=== PATIENT | male | born 1945 | race Caucasian/White ===

== ENCOUNTER 2020-05-05 08:50 | Outpatient (CLI) | payer MEDICARE ==
--- NOTE | 2020-05-05 10:46 | CT ---
CT OF THE ABDOMEN AND PELVIS WITH AND WITHOUT IV CONTRAST: INDICATION: History of prostate malignancy and elevated PSA. COMPARISON: CT of the abdomen and pelvis with contrast dated 02/02/2017 from [facility]. FINDINGS: The small punctate nonobstructing calculi affecting both kidneys is relatively stable in terms of kd al stone burden. No hydronephrosis is evident. No focal renal lesion is demonstrated. Delayed phas e images demonstrate no gross urothelial lesion identified. There are calcifications of the vas deferens which can be seen in diabetic males. There is some wall thickening involving the bladder without an intraluminal mass. the prostate is relatively enlarged measuring 5.2 cm. No pathologically enlarged pelvic lymphadenopathy is grossly evident. No retroper itoneal or upper abdominal lymphadenopathy is evident. There is emphysematous change involving the lung bases. No focal hepatic lesion is evident. The gal lbladder is normal-appearing by CT. The pancreas and spleen reveal no acute abnormality. There are small calcified granuloma in the spleen. The adrenal glands are normal-appearing. There are moderate to severe vascular calcifications involving the abdominopelvic vasculature. There is mild ectasia of the infrarenal abdominal aorta measuring up to 2.3 cm. There is atherosclerotic irregularity involving the pelvic vasculature. There is scattered diverticula involving the colon without evidence of diverticulitis. The small bow el is normal-appearing. The appendix is not well seen. No free fluid is evident. There is diffuse osteopenia. There is scattered degenerative and osteoarthritic change. No suspicio us osteolytic or osteoblastic lesions identified. There is some degenerative subchondral sclerosis i nvolving the iliac bones, left greater than right. IMPRESSION: 1. No overt evidence to suggest the presence of metastatic disease within the abdomen and pelvis. 2. Bilateral nephrolithiasis. 3. Mild ectasia of the infrarenal abdominal aorta. 4. Colonic diverticulosis. 5. Prostate enlargement with bladder wall thickening may reflect a component a component of bladder outlet obstruction. POS: BH
== END 2020-05-05 08:51 | disposition home or self-care (01) ==
LOC: TBSIIMAG 08:50
PROVIDERS: ATTEND Urology
DX: C61 Malignant neoplasm of prostate (principal); N20.0 Calculus of kidney; I77.811 Abdominal aortic ectasia; K57.30 Diverticulosis of large intestine without perforation or abscess without bleeding; N40.0 Benign prostatic hyperplasia without lower urinary tract symptoms; N32.89 Other specified disorders of bladder
CPT/HCPCS: 74178; 82565

== ENCOUNTER 2020-06-08 08:55 | Outpatient (CLI) | payer MEDICARE ==
--- NOTE | 2020-06-09 09:53 | MRI ---
MRI PELVIS (PROSTATE) WITH AND WITHOUT IV CONTRAST: Date: 06/08/2020 HISTORY: 75-year-old male with prostate cancer. Biopsy performed on 03/26/2020 with 09/14 positive. PSA 8.5 on 02/14/2020. FINDINGS: The prostate measures 4.3 x 2.8 x 3.5 cm with a volume of 22 mL and a PSA density of 0.39 nanogram/mL /CC. There is an 11.0 mm focal area of restricted diffusion in the left mid peripheral zone suspicious for malignant process. Arterial enhancement is seen, but is not significantly different from surrounding tissue. No lentiform area of abnormally decreased T2 signal is seen in the transitional zone. The prostatic capsule demonstrates mild bulging adjacent to the left peripheral zone lesion. Involvem ent of the left neurovascular bundle cannot be completely excluded. No pelvic lymphadenopathy is seen. Seminal vesicles are unremarkable. Pelvic side wall is normal. The re is diverticular disease of the sigmoid colon. No abnormal areas of signal replacement of the T1-weighted sequences of the pelvis are seen to sugges t osseous metastatic disease. IMPRESSION: PI-RADS Category 4 - High (clinical significant cancer is likely to be present). POS: OFF
== END 2020-06-08 08:56 | disposition home or self-care (01) ==
LOC: TBSIIMAG 08:55
PROVIDERS: ATTEND Urology
DX: C61 Malignant neoplasm of prostate (principal)
CPT/HCPCS: 72197

== ENCOUNTER 2021-04-28 13:15 | Inpatient (IN) | payer MEDICARE ==
[2021-04-27 13:29] VITALS: BMI 19.3
[2021-05-03] MEDS ORDERED: cefOXitin Sodium/Dextrose 2 GM/50 ML BAG ONE (12:04)
[2021-05-03 12:39] LABS: Anion Gap 11 mmol/L (10-20); BUN (Urea Nitrogen) 19 mg/dL (8.4-25.7); Calc. Creatinine Clearance 34 mL/min (70-130); Calcium 10.2 mg/dL (7.8-10.44); Carbon Dioxide 26 mmol/L (23-31); Chloride 106 mmol/L (98-107); Glucose 104 mg/dL (83-110); Potassium 4.1 mmol/L (3.5-5.1); Sodium 139 mmol/L (136-145)
[2021-05-03] MEDS ORDERED: Dexamethasone 4 mg/ml Vial ONE (14:41)
[2021-05-03] MEDS ORDERED: Fentanyl 100 MCG/2 ML VIAL ONE ×2 (14:41→16:00)
[2021-05-03] MEDS ORDERED: Bupivacaine 0.25% HCL 30 ML VIAL ONE (16:09)
[2021-05-03] MEDS ORDERED: EPINEPHrine 1 MG/ML AMP ONE (16:09)
[2021-05-03] MEDS ORDERED: Indocyanine Green 25 MG/10 ML VIAL ONE (16:09)
[2021-05-03] MEDS ORDERED: Ondansetron PF 4 MG/2 ML Vial ONE (16:31)
[2021-05-03] MEDS ORDERED: Lidocaine 1% PF 5 ML VIAL ONE (16:31)
[2021-05-03] MEDS ORDERED: Bupivacaine HCl 0.5%/Epinephrine 1:200,000/PF 30 ml Vial ONE (16:31)
[2021-05-03] MEDS ORDERED: Ketorolac Tromethamine 30 MG/ML VIAL ONE (16:31)
[2021-05-03] MEDS ORDERED: Dexamethasone 20 MG/5 ML VIAL ONE ×2 (16:31)
[2021-05-03] MEDS ORDERED: Glycopyrrolate 0.2 MG/ML 5 ML SYRINGE ONE (16:31)
[2021-05-03] MEDS ORDERED: PHENYLEPHRINE-NS 100 MCG/ML 10 ML SYRINGE ONE (16:31)
[2021-05-03] MEDS ORDERED: Rocuronium Bromide 10 MG/ML (10ML VIAL) ONE (16:31)
[2021-05-03] MEDS ORDERED: PROPOFOL 200 MG/20 ML VIAL ONE (16:31)
[2021-05-03] MEDS ORDERED: hydrALAZINE 20 MG/ML VIAL SLOW IVP PRN (18:30)
[2021-05-03] MEDS ORDERED: Promethazine HCl 25 MG/ML VIAL IM PRN ×3 (18:30→18:46)
[2021-05-03] MEDS ORDERED: Ondansetron PF 4 MG/2 ML Vial IVP PRN ×2 (18:30→18:46)
[2021-05-03] MEDS ORDERED: Naloxone HCl 0.4 mg/ml Vial IV PRN (18:46)
[2021-05-03] MEDS ORDERED: diphenhydrAMINE 25 MG CAP PO PRN (18:46)
[2021-05-03] MEDS ORDERED: diphenhydrAMINE 50 MG/ML VIAL IM PRN (18:46)
[2021-05-03] MEDS ORDERED: Promethazine HCl 25 MG/ML VIAL IVPB PRN (18:46)
[2021-05-03] MEDS ORDERED: fentaNYL Citrate/PF 2,000 MCG in Sodium Chloride 0.9% 60 ML IV PRN (18:46)
[2021-05-03] MEDS ORDERED: diphenhydrAMINE 50 MG/ML VIAL IVP PRN (18:46)
[2021-05-03] MEDS ORDERED: Ondansetron HCl/PF 4 MG/2 ML Vial IVP PRN (18:46)
[2021-05-03] MEDS ORDERED: Zolpidem Tartrate 5 MG TAB PO PRN (18:46)
[2021-05-03] MEDS ORDERED: Communication Order-Pharmacy FS PRN (19:00)
[2021-05-03] MEDS ORDERED: Famotidine 20 MG TAB PO SCH (21:00)
[2021-05-03] MEDS ORDERED: Famotidine/PF 20 mg/2ml Vial SLOW IVP SCH (21:00)
[2021-05-03] MEDS: cefOXitin Sodium 1 GM, Admixture Fee 1 EACH in Sodium Chloride 0.9% 100 ML IVPB SCH (21:08)
[2021-05-03] MEDS: Sodium Chloride 0.9% 1,000 ML IV SCH (21:09)
[2021-05-03] MEDS: Tamsulosin HCl 0.4 MG CAP PO SCH (21:10)
[2021-05-04] MEDS: cefOXitin Sodium 1 GM, Admixture Fee 1 EACH in Sodium Chloride 0.9% 100 ML IVPB SCH (04:08)
[2021-05-04] MEDS: Sodium Chloride 0.9% 1,000 ML IV SCH (05:45)
[2021-05-04 08:56] LABS: #Lymphocytes 0.5 thou/uL (1.20-3.40); #Monocytes 1.1 thou/uL (0.11-0.59); #Neutrophils 7.8 thou/uL (1.40-6.50); %Eosinophils 0.1 % (0.0-10.0); %Lymphocytes 5.4 % (21.0-51.0); %Monocytes 11.9 % (0.0-10.0); %Neutrophils 82.6 % (42.0-75.0); Hemoglobin 12.2 g/dL (14.0-18.0); Mean Corpuscular HGB CONC 33.1 g/dL (32.0-36.0); Mean Corpuscular Hemoglobin 30.3 pg (27.0-31.0); Mean Corpuscular Volume 91.5 fL (78.0-98.0); Mean Platelet Volume 7.6 fL (7.4-10.4); Platelet Count 152 thou/uL (130-400); RBC Distribution Width 12.1 % (11.5-14.5); Red Blood Cell (RBC) Count 4.04 mill/uL (4.70-6.10); White Blood Cell (WBC) Count 9.4 thou/uL (4.8-10.8)
[2021-05-04] MEDS ORDERED: Enoxaparin Sodium 30 MG/0.3 ML SYRINGE SC SCH (09:00)
[2021-05-04 09:07] LABS: Anion Gap 6 mmol/L (10-20); BUN (Urea Nitrogen) 21 mg/dL (8.4-25.7); Calc. Creatinine Clearance 35 mL/min (70-130); Calcium 8.7 mg/dL (7.8-10.44); Carbon Dioxide 26 mmol/L (23-31); Chloride 108 mmol/L (98-107); Glucose 125 mg/dL (83-110); Potassium 4.5 mmol/L (3.5-5.1); Sodium 135 mmol/L (136-145)
[2021-05-04] MEDS ORDERED: Sodium Chloride 0.9% 1,000 ML IV SCH (09:24)
[2021-05-04] MEDS: Famotidine/PF 20 mg/2ml Vial SLOW IVP SCH (10:12)
[2021-05-04] MEDS: Tamsulosin HCl 0.4 MG CAP PO SCH (20:28)
[2021-05-05] MEDS: Famotidine 20 MG TAB PO SCH ×2 (01:51→07:46)
[2021-05-05] MEDS: Enoxaparin Sodium 40 MG/0.4 ML SYRINGE SC SCH (07:46)
[2021-05-05] MEDS: Famotidine/PF 20 mg/2ml Vial SLOW IVP SCH (07:49)
[2021-05-05] MEDS ORDERED: Fentanyl 100 MCG/2 ML VIAL SLOW IVP PRN (11:53)
[2021-05-05] MEDS ORDERED: traMADol HCl 50 MG TAB PO PRN (11:57)
[2021-05-05] MEDS ORDERED: HYDROcodone/Acetaminophen 5/325 mg Tablet PO PRN ×2 (12:00)
[2021-05-05] MEDS: Tamsulosin HCl 0.4 MG CAP PO SCH (20:42)
[2021-05-06 08:40] VITALS: BP 117/54; TEMP 97.7
[2021-05-06] MEDS: Enoxaparin Sodium 40 MG/0.4 ML SYRINGE SC SCH (09:21)
[2021-05-06] MEDS: Famotidine 20 MG TAB PO SCH (09:21)
[2021-05-06] MEDS: Famotidine/PF 20 mg/2ml Vial SLOW IVP SCH (09:21)
== END 2021-05-06 11:25 | disposition home health service (06) | DRG 331 ==
LOC: SURG A 05-03 11:04 → EDSTATUS 05-03 13:44 → SURG A 05-03 19:40
PROVIDERS: ADMIT Surgery; ATTEND Surgery
PROC: 0DBG0ZZ Excision of Left Large Intestine, Open Approach (ICD-10-PCS; principal; 2021-05-03)
PROC: 0D1B0Z4 Bypass Ileum to Cutaneous, Open Approach (ICD-10-PCS; 2021-05-03)
DX: C18.9 Malignant neoplasm of colon, unspecified (principal); F17.210 Nicotine dependence, cigarettes, uncomplicated; M10.9 Gout, unspecified; J44.9 Chronic obstructive pulmonary disease, unspecified; N18.30 Chronic kidney disease, stage 3 unspecified; I71.4 Abdominal aortic aneurysm, without rupture; Z80.0 Family history of malignant neoplasm of digestive organs; Z79.51 Long term (current) use of inhaled steroids; Z79.899 Other long term (current) drug therapy; Z85.828 Personal history of other malignant neoplasm of skin; Z85.46 Personal history of malignant neoplasm of prostate
CPT/HCPCS: 36415; 36416; 80048; 85025; 88309; A4649; C1776; J0171; J0694; J1100; J1650; J1885; J2405; J2704; J3010; J3490; J7050; S0020; S0028

== ENCOUNTER 2021-04-28 13:22 | Outpatient (CLI) | payer MEDICARE ==
[2021-04-28 14:45] LABS: #Basophils 0.1 10x3/uL (0.0-0.2); #Eosinphils 0.2 10x3/uL (0.0-0.5); #Monocytes 0.8 10x3/uL (0.0-1.1); #Neutrophils 3.9 10x3/uL (1.5-8.4); %Basophils 0.8 % (0.0-2.0); %Eosinophils 3.8 % (0.0-6.0); %Lymphocytes 20.8 % (18.0-47.0); %Monocytes 12.3 % (0.0-10.0); Hemoglobin 13.8 g/dL (13.5-17.5); Mean Corpuscular HGB CONC 32.3 g/dL (32.0-36.0); Mean Corpuscular Hemoglobin 29.6 pg (27.0-33.0); Mean Corpuscular Volume 91.6 fl (81.2-95.1); Mean Platelet Volume 9.9 fl (7.4-10.4); Platelet Count 218 10x3/uL (150-450); RBC Distribution Width 13.4 % (11.5-14.5); Red Blood Cell (RBC) Count 4.66 10x6/uL (4.32-5.72); White Blood Cell (WBC) Count 6.4 10x3/uL (3.5-10.5)
[2021-04-28 14:59] LABS: Anion Gap 16 mmol/L (10-20); BUN (Urea Nitrogen) 27 mg/dL (8.4-25.7); Calc. Creatinine Clearance 0 mL/min (70-130); Calcium 10.1 mg/dL (7.8-10.44); Carbon Dioxide 29 mmol/L (23-31); Chloride 106 mmol/L (98-107); Glucose 79 mg/dL (83-110); Potassium 5.5 mmol/L (3.5-5.1); Sodium 145 mmol/L (136-145)
[2021-04-28 20:21] LABS: Hemoglobin A1c 5.4 % (4.0-6.0)
[2021-04-29 21:07] LABS: SARS-CoV-2 PCR by NAA Not Detected (NotDetected)
== END 2021-04-28 13:23 | disposition home or self-care (01) ==
LOC: LABBT 13:22
PROVIDERS: ATTEND Orthopaedic Surgery
DX: Z01.812 Encounter for preprocedural laboratory examination (principal); C18.9 Malignant neoplasm of colon, unspecified; Z20.822 Contact with and (suspected) exposure to COVID-19
CPT/HCPCS: 80048; 83036; 85025; U0003; U0005

== ENCOUNTER 2021-05-10 13:08 | Day surgery (SDC) | payer MEDICARE ==
[2021-05-10] MEDS ORDERED: Ondansetron PF 4 MG/2 ML Vial IVP PRN (13:17)
[2021-05-10] MEDS ORDERED: Sodium Chloride 0.9% 1,000 ML IV SCH (13:30)
[2021-05-10] MEDS ORDERED: Multivitamins, Adult 10 ML, Thiamine HCl 100 MG in Sodium Chloride 0.9% 500 ML IV SCH (13:30)
[2021-05-10 13:34] VITALS: BP 114/63
== END 2021-05-10 15:35 | disposition home or self-care (01) ==
LOC: ONC/OP 13:08
PROVIDERS: ATTEND Surgery
DX: E86.0 Dehydration (principal)
CPT/HCPCS: 96361; 96365; 96366; J3411; J7030

== ENCOUNTER 2021-06-23 11:28 | Outpatient (CLI) | payer MEDICARE ==
[2021-06-23 12:41] LABS: #Eosinphils 0.1 10x3/uL (0.0-0.5); #Monocytes 0.5 10x3/uL (0.0-1.1); #Neutrophils 4.3 10x3/uL (1.5-8.4); %Basophils 0.7 % (0.0-2.0); %Eosinophils 2.2 % (0.0-6.0); %Lymphocytes 15.2 % (18.0-47.0); %Monocytes 9.1 % (0.0-10.0); %Neutrophils 72.5 % (40.0-75.0); Hemoglobin 13.9 g/dL (13.5-17.5); Mean Corpuscular HGB CONC 32.5 g/dL (32.0-36.0); Mean Corpuscular Hemoglobin 29.8 pg (27.0-33.0); Mean Corpuscular Volume 91.6 fl (81.2-95.1); Mean Platelet Volume 9.7 fl (7.4-10.4); Platelet Count 221 10x3/uL (150-450); RBC Distribution Width 14.1 % (11.5-14.5); Red Blood Cell (RBC) Count 4.67 10x6/uL (4.32-5.72); White Blood Cell (WBC) Count 5.9 10x3/uL (3.5-10.5)
[2021-06-23 13:06] LABS: Anion Gap 13 mmol/L (10-20); BUN (Urea Nitrogen) 23 mg/dL (8.4-25.7); Calc. Creatinine Clearance 0 mL/min (70-130); Calcium 9.9 mg/dL (7.8-10.44); Carbon Dioxide 26 mmol/L (23-31); Chloride 107 mmol/L (98-107); Glucose 142 mg/dL (83-110); Potassium 5.3 mmol/L (3.5-5.1); Sodium 141 mmol/L (136-145)
[2021-06-23 21:45] LABS: SARS-CoV-2 PCR by NAA Not Detected (NotDetected)
== END 2021-06-23 11:29 | disposition home or self-care (01) ==
LOC: LABBT 11:28
PROVIDERS: ATTEND Surgery
DX: Z01.812 Encounter for preprocedural laboratory examination (principal); C18.9 Malignant neoplasm of colon, unspecified; Z20.822 Contact with and (suspected) exposure to COVID-19
CPT/HCPCS: 80048; 85025; U0003; U0005

== ENCOUNTER 2021-06-28 11:36 | Inpatient (IN) | payer MEDICARE ==
[2021-06-28] MEDS ORDERED: cefOXitin Sodium/Dextrose 2 GM/50 ML BAG ONE (12:28)
[2021-06-28] MEDS ORDERED: Fentanyl 100 MCG/2 ML VIAL ONE ×3 (12:30→14:38)
[2021-06-28] MEDS ORDERED: PHENYLEPHRINE-NS 100 MCG/ML 10 ML SYRINGE ONE (12:32)
[2021-06-28] MEDS ORDERED: Rocuronium Bromide 10 MG/ML (10ML VIAL) ONE (12:32)
[2021-06-28] MEDS ORDERED: Calcium Chloride 1 GM/10 ML Abboject SYRINGE ONE (12:32)
[2021-06-28] MEDS ORDERED: Glycopyrrolate 0.2 MG/ML 5 ML SYRINGE ONE (12:32)
[2021-06-28] MEDS ORDERED: PROPOFOL 200 MG/20 ML VIAL ONE (12:32)
[2021-06-28] MEDS ORDERED: ePHEDrine 50 MG/ML VIAL ONE (12:32)
[2021-06-28 12:50] LABS: Anion Gap 13 mmol/L (10-20); BUN (Urea Nitrogen) 26 mg/dL (8.4-25.7); Calc. Creatinine Clearance 33 mL/min (70-130); Calcium 10.2 mg/dL (7.8-10.44); Carbon Dioxide 26 mmol/L (23-31); Chloride 105 mmol/L (98-107); Glucose 103 mg/dL (83-110); Potassium 3.9 mmol/L (3.5-5.1); Sodium 140 mmol/L (136-145)
[2021-06-28] MEDS ORDERED: Promethazine HCl 25 MG/ML VIAL IVPB PRN (13:55)
[2021-06-28] MEDS ORDERED: Promethazine HCl 25 MG/ML VIAL IM PRN ×2 (13:55→18:09)
[2021-06-28] MEDS ORDERED: Ondansetron HCl/PF 4 MG/2 ML Vial IVP PRN (13:55)
[2021-06-28] MEDS ORDERED: Morphine 4 MG/ML VIAL ONE (14:46)
[2021-06-28] MEDS ORDERED: Promethazine HCl 25 MG/ML VIAL ONE (15:21)
[2021-06-28] MEDS ORDERED: Dextrose 50% Abboject 50 ML SYRINGE SLOW IVP PRN (18:09)
[2021-06-28] MEDS ORDERED: Morphine 4 MG/ML VIAL SLOW IVP PRN ×2 (18:09→18:15)
[2021-06-28] MEDS ORDERED: Dextrose 5% in Water 1,000 ML IV PRN (18:09)
[2021-06-28] MEDS ORDERED: Ondansetron PF 4 MG/2 ML Vial IVP PRN (18:09)
[2021-06-28] MEDS ORDERED: hydrALAZINE 20 MG/ML VIAL SLOW IVP PRN (18:09)
[2021-06-28] MEDS ORDERED: Albuterol 200 PUFF (6.7GM INHALER) INH PRN (18:18)
[2021-06-28] MEDS ORDERED: Famotidine 20 MG TAB PO SCH (21:00)
[2021-06-28] MEDS ORDERED: Tamsulosin HCl 0.4 MG CAP PO SCH (21:00)
[2021-06-28] MEDS ORDERED: Famotidine/PF 20 mg/2ml Vial SLOW IVP SCH (21:00)
[2021-06-28] MEDS ORDERED: Enoxaparin Sodium 40 MG/0.4 ML SYRINGE SC SCH (21:00)
[2021-06-28] MEDS: HYDROcodone/Acetaminophen 7.5/325 mg Tablet PO PRN (21:11)
[2021-06-28] MEDS: Sodium Chloride 0.9% 1,000 ML IV SCH (21:11)
[2021-06-28 22:08] VITALS: BMI 18.5
[2021-06-29] MEDS: HYDROcodone/Acetaminophen 7.5/325 mg Tablet PO PRN ×2 (04:48→14:02)
[2021-06-29 06:24] LABS: #Eosinphils 0.1 thou/uL (0.0-0.7); #Lymphocytes 1.1 thou/uL (1.20-3.40); #Monocytes 0.9 thou/uL (0.11-0.59); #Neutrophils 5.1 thou/uL (1.40-6.50); %Basophils 0.4 % (0.0-1.0); %Eosinophils 1.1 % (0.0-10.0); %Lymphocytes 15.1 % (21.0-51.0); %Monocytes 11.9 % (0.0-10.0); %Neutrophils 71.5 % (42.0-75.0); Hemoglobin 12.5 g/dL (14.0-18.0); Mean Corpuscular HGB CONC 31.9 g/dL (32.0-36.0); Mean Corpuscular Hemoglobin 29.6 pg (27.0-31.0); Mean Corpuscular Volume 92.7 fL (78.0-98.0); Mean Platelet Volume 7.5 fL (7.4-10.4); Platelet Count 180 thou/uL (130-400); RBC Distribution Width 12.5 % (11.5-14.5); Red Blood Cell (RBC) Count 4.21 mill/uL (4.70-6.10); White Blood Cell (WBC) Count 7.1 thou/uL (4.8-10.8)
[2021-06-29 06:48] LABS: Anion Gap 12 mmol/L (10-20); BUN (Urea Nitrogen) 19 mg/dL (8.4-25.7); Calc. Creatinine Clearance 36 mL/min (70-130); Calcium 9.4 mg/dL (7.8-10.44); Carbon Dioxide 24 mmol/L (23-31); Chloride 107 mmol/L (98-107); Glucose 88 mg/dL (83-110); Potassium 4.5 mmol/L (3.5-5.1); Sodium 138 mmol/L (136-145)
[2021-06-29] MEDS: Sodium Chloride 0.9% 1,000 ML IV SCH (06:49)
[2021-06-29 12:27] VITALS: BP 125/70; TEMP 97.9
[2021-06-29] MEDS ORDERED: Famotidine/PF 20 mg/2ml Vial SLOW IVP SCH (21:00)
== END 2021-06-29 14:58 | disposition home or self-care (01) | DRG 331 ==
LOC: SDC 11:36 → SURG B 13:39
PROVIDERS: ADMIT Surgery; ATTEND Surgery
PROC: 0DBB0ZZ Excision of Ileum, Open Approach (ICD-10-PCS; principal; 2021-06-28)
DX: Z43.2 Encounter for attention to ileostomy (principal); Z20.822 Contact with and (suspected) exposure to COVID-19; M10.9 Gout, unspecified; J44.9 Chronic obstructive pulmonary disease, unspecified; M47.816 Spondylosis without myelopathy or radiculopathy, lumbar region; N18.30 Chronic kidney disease, stage 3 unspecified; Z85.038 Personal history of other malignant neoplasm of large intestine; Z85.828 Personal history of other malignant neoplasm of skin; Z85.46 Personal history of malignant neoplasm of prostate; Z90.49 Acquired absence of other specified parts of digestive tract
CPT/HCPCS: 36415; 80048; 85025; J0694; J1650; J2270; J2550; J2704; J3010; J3490; J7050; S0028

== ENCOUNTER 2023-03-21 09:30 | Outpatient (CLI) | payer MEDICARE | END 2023-03-21 09:31 | disposition home or self-care (01) | LOC: PET 09:30 | PROVIDERS: ATTEND Radiology Radiation Oncology | DX: C18.9 Malignant neoplasm of colon, unspecified (principal); R91.8 Other nonspecific abnormal finding of lung field | CPT/HCPCS: 78815; A9552 ==

== ENCOUNTER 2023-03-21 11:44 | Outpatient (CLI) | payer MEDICARE | END 2023-03-21 11:45 | disposition home or self-care (01) | LOC: SCSMRI 11:44 | PROVIDERS: ATTEND Internal Medicine | DX: C34.12 Malignant neoplasm of upper lobe, left bronchus or lung (principal); C61 Malignant neoplasm of prostate | CPT/HCPCS: 70553; 78815; A9552 ==

== ENCOUNTER 2023-11-21 12:21 | Outpatient (CLI) | payer MEDICARE | END 2023-11-21 12:22 | disposition home or self-care (01) | LOC: BICRAD 12:21 | PROVIDERS: ATTEND Urology | DX: N18.9 Chronic kidney disease, unspecified (principal); N20.0 Calculus of kidney | CPT/HCPCS: 74018 ==

== ENCOUNTER 2023-12-14 11:00 | Outpatient (CLI) | payer MEDICARE | END 2023-12-14 11:01 | disposition home or self-care (01) | LOC: PET 11:00 | PROVIDERS: ATTEND Internal Medicine | DX: C18.9 Malignant neoplasm of colon, unspecified (principal); R91.1 Solitary pulmonary nodule | CPT/HCPCS: 78815; A9552 ==